=== PATIENT | male | born 1960 | race Caucasian/White ===

== ENCOUNTER 2020-06-06 18:47 | Inpatient (IN) | payer SELFPAY ==
[~2020-06-06] VITALS: Ht 162.6 cm; Wt 128.4 kg
[2020-06-06 20:05] LABS: BASOPHIL % 0.7 % (0.2-1.5); PLATELET COUNT 149 x10^3mcL (152-348); RED CELL DISTRIBUTION WIDTH 12.8 % (12.1-16.2)
[2020-06-06 20:07] LABS: rbc morphology (normal/abnorm) NORMAL (NORMAL)
[2020-06-06 21:04] LABS: CALCIUM 8.4 mg/dL (8.5-10.1); CARBON DIOXIDE 24.9 mmol/L (21-32); CHLORIDE SERUM 97 mmol/L (98-107); CREATININE SERUM 0.9 mg/dL (0.7-1.3); GFR1 > 60 mL/min; GLUCOSE SERUM 114 mg/dL (74-106); SODIUM SERUM 133 mmol/L (136-145)
[2020-06-06 21:08] LABS: ALBUMIN 3.5 g/dL (3.4-5.0); ALKALINE PHOSPHATASE 92 U/L (46-116); ALT/SGPT 73 U/L (16-63); AST/SGOT 59 U/L (15-37); BILIRUBIN TOTAL 0.4 mg/dL (0.20-1.00); C REACTIVE PROTEIN 5.5 mg/dL (<=0.9); LACTIC DEHYDROGENASE (LDH) 350 U/L (100-190)
[2020-06-07 01:54] LABS: MAGNESIUM 1.9 mg/dL (1.8-2.4); PHOSPHOROUS 3.2 mg/dL (2.5-4.9)
[2020-06-07 02:02] LABS: FREE T4 1.08 ng/dL (0.76-1.46); T4(THYROXINE) 9.6 ug/dL (4.7-13.3)
[2020-06-07 08:34] LABS: UA SPECIFIC GRAVITY >=1.030 (1.005-1.035); microscopic required? YES; urine erythrocyte NEGATIVE (NEGATIVE)
[2020-06-07 10:17] LABS: AMPHETAMINE QUAL UR NONE DETECTED (See below)
[2020-06-07 17:52] VITALS: BP 145/82
[2020-06-08] VITALS (8 sets, daily range): BP systolic 110–139; BP diastolic 54–77
[2020-06-08 04:59] LABS: BASOPHIL % 0.2 % (0.2-1.5); PLATELET COUNT 174 x10^3mcL (152-348); RED CELL DISTRIBUTION WIDTH 12.9 % (12.1-16.2)
[2020-06-08 05:01] LABS: rbc morphology (normal/abnorm) NORMAL (NORMAL)
[2020-06-08 05:13] LABS: ALKALINE PHOSPHATASE 81 U/L (46-116); ALT/SGPT 54 U/L (16-63); AST/SGOT 36 U/L (15-37); BILIRUBIN TOTAL 0.5 mg/dL (0.20-1.00); CARBON DIOXIDE 28.1 mmol/L (21-32); CHLORIDE SERUM 101 mmol/L (98-107); CREATININE SERUM 0.9 mg/dL (0.7-1.3); GFR1 > 60 mL/min; GLUCOSE SERUM 140 mg/dL (74-106); POTASSIUM SERUM 4.7 mmol/L (3.5-5.1); SODIUM SERUM 137 mmol/L (136-145); TOTAL PROTEIN, SERUM 7.7 g/dL (6.4-8.2)
[2020-06-08 05:27] LABS: ALBUMIN 3.1 g/dL (3.4-5.0)
[2020-06-09 05:51] VITALS: BP 123/69
[2020-06-09 07:23] LABS: CALCIUM 8.1 mg/dL (8.5-10.1); CARBON DIOXIDE 27.3 mmol/L (21-32); CHLORIDE SERUM 99 mmol/L (98-107); CREATININE SERUM 0.9 mg/dL (0.7-1.3); GFR1 > 60 mL/min; GLUCOSE SERUM 92 mg/dL (74-106); POTASSIUM SERUM 4.1 mmol/L (3.5-5.1); SODIUM SERUM 136 mmol/L (136-145)
[2020-06-09 07:24] LABS: BASOPHIL % 0.1 % (0.2-1.5); PLATELET COUNT 187 x10^3mcL (152-348); RED CELL DISTRIBUTION WIDTH 12.9 % (12.1-16.2)
[2020-06-09 07:45] LABS: ALBUMIN 2.9 g/dL (3.4-5.0); BILIRUBIN DIRECT 0.2 mg/dL (0.0-0.2); BILIRUBIN TOTAL 0.7 mg/dL (0.20-1.00); TOTAL PROTEIN, SERUM 7.2 g/dL (6.4-8.2)
[2020-06-09 08:24] VITALS: BP 129/75
[2020-06-09 11:50] LABS: rbc morphology (normal/abnorm) NORMAL (NORMAL)
[2020-06-09 11:59] VITALS: BP 108/60
[2020-06-09 16:05] VITALS: BP 127/72
[2020-06-09 21:30] VITALS: BP 117/62
[2020-06-10 06:03] VITALS: BP 108/67
[2020-06-10 08:20] VITALS: BP 116/70
[2020-06-10 08:31] LABS: PLATELET COUNT 240 x10^3mcL (152-348); RED CELL DISTRIBUTION WIDTH 12.9 % (12.1-16.2)
[2020-06-10 08:39] LABS: BASOPHIL % 5.8 % (0.2-1.5)
[2020-06-10 08:40] LABS: rbc morphology (normal/abnorm) NORMAL (NORMAL)
[2020-06-10 09:42] LABS: CALCIUM 8.5 mg/dL (8.5-10.1); CARBON DIOXIDE 23.3 mmol/L (21-32); CHLORIDE SERUM 102 mmol/L (98-107); CREATININE SERUM 0.7 mg/dL (0.7-1.3); GFR1 > 60 mL/min; GLUCOSE SERUM 114 mg/dL (74-106); POTASSIUM SERUM 4.1 mmol/L (3.5-5.1); SODIUM SERUM 138 mmol/L (136-145)
[2020-06-10 11:07] LABS: C REACTIVE PROTEIN 14.2 mg/dL (<=0.9)
[2020-06-10 12:01] VITALS: BP 115/72
[2020-06-10 13:32] LABS: BILIRUBIN DIRECT 0.16 mg/dL (0.0-0.2); BILIRUBIN TOTAL 0.55 mg/dL (0.20-1.00); TOTAL PROTEIN, SERUM 7.4 g/dL (6.4-8.2)
[2020-06-10 13:34] LABS: ALBUMIN 2.8 g/dL (3.4-5.0)
[2020-06-10 15:47] VITALS: BP 110/68
[2020-06-10 20:47] VITALS: BP 111/62
[2020-06-11 05:46] VITALS: BP 129/79
[2020-06-11 07:57] LABS: PLATELET COUNT 242 x10^3mcL (152-348); RED CELL DISTRIBUTION WIDTH 12.5 % (12.1-16.2)
[2020-06-11 08:20] LABS: ALBUMIN 2.7 g/dL (3.4-5.0); BILIRUBIN DIRECT 0.19 mg/dL (0.0-0.2); BILIRUBIN TOTAL 0.6 mg/dL (0.20-1.00); TOTAL PROTEIN, SERUM 6.9 g/dL (6.4-8.2)
[2020-06-11 08:22] LABS: CALCIUM 8.7 mg/dL (8.5-10.1); CARBON DIOXIDE 23.5 mmol/L (21-32); CHLORIDE SERUM 102 mmol/L (98-107); CREATININE SERUM 0.9 mg/dL (0.7-1.3); GFR1 > 60 mL/min; GLUCOSE SERUM 110 mg/dL (74-106); POTASSIUM SERUM 3.8 mmol/L (3.5-5.1); SODIUM SERUM 138 mmol/L (136-145)
[2020-06-11 08:47] LABS: BASOPHIL % 4.7 % (0.2-1.5)
[2020-06-11 09:12] VITALS: BP 121/72
[2020-06-11 10:31] LABS: rbc morphology (normal/abnorm) NORMAL (NORMAL)
[2020-06-11 12:34] VITALS: BP 124/72
[2020-06-11 17:42] VITALS: BP 118/71
[2020-06-11 21:53] VITALS: BP 122/83
[2020-06-12 06:12] VITALS: BP 124/74
[2020-06-12 09:21] VITALS: BP 119/70
[2020-06-12 12:20] VITALS: BP 114/69
[2020-06-12 13:24] LABS: BASOPHIL % 0.7 % (0.2-1.5); PLATELET COUNT 302 x10^3mcL (152-348); RED CELL DISTRIBUTION WIDTH 13.1 % (12.1-16.2)
[2020-06-12 14:21] LABS: BILIRUBIN DIRECT 0.12 mg/dL (0.0-0.2); BILIRUBIN TOTAL 0.58 mg/dL (0.20-1.00); TOTAL PROTEIN, SERUM 8.2 g/dL (6.4-8.2)
[2020-06-12 14:46] LABS: CALCIUM 8.9 mg/dL (8.5-10.1); CHLORIDE SERUM 100 mmol/L (98-107); GFR1 > 60 mL/min; GLUCOSE SERUM 82 mg/dL (74-106); SODIUM SERUM 140 mmol/L (136-145); rbc morphology (normal/abnorm) NORMAL (NORMAL)
[2020-06-12 17:32] VITALS: BP 96/62
[2020-06-12 20:29] VITALS: BP 125/75
[2020-06-13 04:51] VITALS: BP 114/72
[2020-06-13 06:29] LABS: CALCIUM 9.1 mg/dL (8.5-10.1); CARBON DIOXIDE 23.3 mmol/L (21-32); CHLORIDE SERUM 99 mmol/L (98-107); CREATININE SERUM 0.9 mg/dL (0.7-1.3); GFR1 > 60 mL/min; GLUCOSE SERUM 114 mg/dL (74-106); MAGNESIUM 2.3 mg/dL (1.8-2.4); PHOSPHOROUS 3.7 mg/dL (2.5-4.9); POTASSIUM SERUM 3.7 mmol/L (3.5-5.1); SODIUM SERUM 135 mmol/L (136-145)
[2020-06-13 06:36] LABS: BASOPHIL % 0.3 % (0.2-1.5); PLATELET COUNT 293 x10^3mcL (152-348); RED CELL DISTRIBUTION WIDTH 12.9 % (12.1-16.2)
[2020-06-13 09:43] VITALS: Ht 162.6 cm; Wt 128.4 kg
[2020-06-13 10:27] VITALS: BP 107/67
[2020-06-13 11:56] VITALS: BP 130/76
[2020-06-13 15:04] LABS: rbc morphology (normal/abnorm) NORMAL (NORMAL)
[2020-06-13 16:45] VITALS: BP 111/70
[2020-06-13 21:21] VITALS: BP 129/76
[2020-06-14 05:00] VITALS: BP 135/81
[2020-06-14 08:36] LABS: CALCIUM 8.6 mg/dL (8.5-10.1); CARBON DIOXIDE 25.7 mmol/L (21-32); CHLORIDE SERUM 95 mmol/L (98-107); CREATININE SERUM 0.8 mg/dL (0.7-1.3); GFR1 > 60 mL/min; GLUCOSE SERUM 87 mg/dL (74-106); MAGNESIUM 2.2 mg/dL (1.8-2.4); PHOSPHOROUS 3.6 mg/dL (2.5-4.9); POTASSIUM SERUM 3.7 mmol/L (3.5-5.1); SODIUM SERUM 133 mmol/L (136-145)
[2020-06-14 08:48] LABS: C REACTIVE PROTEIN 13.8 mg/dL (<=0.9)
[2020-06-14 09:00] VITALS: BP 121/66
[2020-06-14 12:29] VITALS: BP 112/68
[2020-06-14 13:39] LABS: BASOPHIL % 0.7 % (0.2-1.5); PLATELET COUNT 317 x10^3mcL (152-348); RED CELL DISTRIBUTION WIDTH 12.9 % (12.1-16.2)
[2020-06-14 14:59] LABS: rbc morphology (normal/abnorm) NORMAL (NORMAL)
[2020-06-14 16:58] VITALS: BP 125/65
[2020-06-14 22:09] VITALS: BP 137/68
[2020-06-15 06:16] VITALS: BP 116/67
[2020-06-15 07:18] LABS: BASOPHIL % 0.2 % (0.2-1.5); CALCIUM 8.9 mg/dL (8.5-10.1); CARBON DIOXIDE 24.9 mmol/L (21-32); CHLORIDE SERUM 98 mmol/L (98-107); CREATININE SERUM 0.9 mg/dL (0.7-1.3); GFR1 > 60 mL/min; GLUCOSE SERUM 148 mg/dL (74-106); PLATELET COUNT 244 x10^3mcL (152-348); POTASSIUM SERUM 4.2 mmol/L (3.5-5.1); RED CELL DISTRIBUTION WIDTH 12.6 % (12.1-16.2); SODIUM SERUM 134 mmol/L (136-145)
[2020-06-15 08:56] VITALS: BP 139/73
[2020-06-15 11:37] VITALS: BP 137/82
[2020-06-15 17:40] VITALS: BP 118/77
[2020-06-15 21:20] VITALS: BP 136/82
[2020-06-16 05:11] VITALS: BP 130/75
[2020-06-16 07:45] LABS: BASOPHIL % 0.2 % (0.2-1.5); PLATELET COUNT 195 x10^3mcL (152-348); RED CELL DISTRIBUTION WIDTH 12.8 % (12.1-16.2)
[2020-06-16 08:41] VITALS: BP 143/77
[2020-06-16 11:52] VITALS: BP 126/75
[2020-06-16 11:54] LABS: CALCIUM 9.5 mg/dL (8.5-10.1); CHLORIDE SERUM 101 mmol/L (98-107); GFR1 > 60 mL/min; GLUCOSE SERUM 133 mg/dL (74-106); POTASSIUM SERUM 4.1 mmol/L (3.5-5.1); SODIUM SERUM 138 mmol/L (136-145)
[2020-06-16 12:18] LABS: LACTIC DEHYDROGENASE (LDH) 761 U/L (100-190)
[2020-06-16 12:33] VITALS: BP 115/71
[2020-06-16 17:25] VITALS: BP 135/85
[2020-06-16 21:10] VITALS: BP 137/82
[2020-06-17 05:43] VITALS: BP 141/89
[2020-06-17 08:27] LABS: BASOPHIL % 0.2 % (0.2-1.5); PLATELET COUNT 147 x10^3mcL (152-348)
[2020-06-17 08:43] LABS: CALCIUM 9.6 mg/dL (8.5-10.1); CARBON DIOXIDE 25.5 mmol/L (21-32); CHLORIDE SERUM 103 mmol/L (98-107); CREATININE SERUM 0.8 mg/dL (0.7-1.3); GFR1 > 60 mL/min; GLUCOSE SERUM 139 mg/dL (74-106); POTASSIUM SERUM 4.4 mmol/L (3.5-5.1); SODIUM SERUM 140 mmol/L (136-145)
[2020-06-17 09:16] VITALS: BP 142/89
[2020-06-17 10:48] LABS: rbc morphology (normal/abnorm) NORMAL (NORMAL)
[2020-06-17 12:09] VITALS: BP 154/95
[2020-06-17 16:41] VITALS: BP 134/86
[2020-06-17 20:00] VITALS: BP 125/81
[2020-06-18 05:12] VITALS: BP 151/91
[2020-06-18 12:14] VITALS: BP 117/77
[2020-06-18 16:25] VITALS: BP 138/77
[2020-06-18 20:45] VITALS: BP 142/82
[2020-06-19 05:08] VITALS: BP 130/82
[2020-06-19 07:38] LABS: PLATELET COUNT 207 x10^3mcL (152-348); RED CELL DISTRIBUTION WIDTH 13.3 % (12.1-16.2)
[2020-06-19 07:55] LABS: CALCIUM 9.1 mg/dL (8.5-10.1); CHLORIDE SERUM 109 mmol/L (98-107); CREATININE SERUM 0.7 mg/dL (0.7-1.3); GFR1 > 60 mL/min; GLUCOSE SERUM 133 mg/dL (74-106); SODIUM SERUM 143 mmol/L (136-145)
[2020-06-19 08:10] LABS: POTASSIUM SERUM 5.7 mmol/L (3.5-5.1)
[2020-06-19 09:42] VITALS: BP 130/78
[2020-06-19 12:32] VITALS: BP 123/80
[2020-06-19 13:33] LABS: ATYPICAL LYMPH 3 %; MONOCYTE 4 % (0-7); SEGMENTED NEUTROPHILS 88 % (37-75)
[2020-06-19 13:34] LABS: rbc morphology (normal/abnorm) NORMAL (NORMAL)
[2020-06-19 17:28] VITALS: BP 133/90
[2020-06-19 21:05] VITALS: BP 229/122
== END 2020-06-20 01:44 | DRG 208 ==
LOC: ED 18:47 → DU 22:11
PROVIDERS: Emergency Medicine; Internal Medicine; ADMIT Family Medicine; ATTEND Family Medicine
PROC: XW033E5 Introduction of Remdesivir Anti-infective into Peripheral Vein, Percutaneous Approach, New Technology Group 5 (ICD-10-PCS; 2020-06-08)
PROC: XW13325 Transfusion of Convalescent Plasma (Nonautologous) into Peripheral Vein, Percutaneous Approach, New Technology Group 5 (ICD-10-PCS; 2020-06-08)
PROC: 5A09357 Assistance with Respiratory Ventilation, Less than 24 Consecutive Hours, Continuous Positive Airway Pressure (ICD-10-PCS; principal; 2020-06-15)
PROC: 02HV33Z Insertion of Infusion Device into Superior Vena Cava, Percutaneous Approach (ICD-10-PCS; 2020-06-15)
PROC: B548ZZA Ultrasonography of Superior Vena Cava, Guidance (ICD-10-PCS; 2020-06-15)
PROC: 5A09357 Assistance with Respiratory Ventilation, Less than 24 Consecutive Hours, Continuous Positive Airway Pressure (ICD-10-PCS; 2020-06-16)
PROC: 5A09357 Assistance with Respiratory Ventilation, Less than 24 Consecutive Hours, Continuous Positive Airway Pressure (ICD-10-PCS; 2020-06-18)
PROC: 5A1935Z Respiratory Ventilation, Less than 24 Consecutive Hours (ICD-10-PCS; 2020-06-19)
PROC: 0BH17EZ Insertion of Endotracheal Airway into Trachea, Via Natural or Artificial Opening (ICD-10-PCS; 2020-06-19)
PROC: 5A12012 Performance of Cardiac Output, Single, Manual (ICD-10-PCS; 2020-06-20)
DX: U07.1 COVID-19 (principal); J12.89 Other viral pneumonia; J96.01 Acute respiratory failure with hypoxia; N17.0 Acute kidney failure with tubular necrosis; E87.1 Hypo-osmolality and hyponatremia; Z68.42 Body mass index [BMI] 45.0-49.9, adult; I10 Essential (primary) hypertension; E87.8 Other disorders of electrolyte and fluid balance, not elsewhere classified; D69.6 Thrombocytopenia, unspecified; R74.01 Elevation of levels of liver transaminase levels; E66.01 Morbid (severe) obesity due to excess calories; F32.9 Major depressive disorder, single episode, unspecified; D72.829 Elevated white blood cell count, unspecified; R73.03 Prediabetes; I46.9 Cardiac arrest, cause unspecified
CPT/HCPCS: 31500; 36600; 82962; 83880; 84439; 85378; 87804; 90658; 90732; 97110-GP; 97116-GP; 97530-GP; C9113; G0378; J0456; J0696; J1100; J1644; J1650; J1940; J2060; J2370; J2930; J3490; J3535; J7030; J7040; J7042; J7050; U0003